=== PATIENT | male | born 1980 | race Caucasian/White ===

== ENCOUNTER 2025-03-21 21:05 | Emergency (ER) | payer OTHER, SELFPAY ==
--- NOTE | 2025-03-21 21:18 | DI.RAD.S_ITS ---
PROCEDURE: XR SHOULDER LT MIN 2V INDICATIONS: pain in left shoulder, unable to move shoulder TECHNIQUE: 2 views of the shoulder were acquired. COMPARISON: None. FINDINGS: Bones: No fractures or dislocations. No suspicious bony lesions. Visualized ribs appear intact. Acromioclavicular joint space narrowing with osteophytosis. Soft tissues: No suspicious soft tissue calcifications. IMPRESSION: No dislocation. Moderate to severe chronic of accurate osteoarthritis. Dictated by: Roberth Olsen M.D. on 03/21/2025 at 21:34 Approved by: Roberth Olsen M.D. on 03/21/2025 at 21:35
[2025-03-21 21:19] VITALS: BP 150/100; PULSE 86; RESP 17; TEMP 37; O2SAT 98; BMI 25.4
[2025-03-21 21:33] VITALS: BP 147/94; PULSE 92; RESP 19; O2SAT 97
--- NOTE | 2025-03-21 21:39 | ED.EXTPRO ---
HPI - Extremity Problem General Chief complaint: Extremity Problem,Nontraumatic Stated complaint: thinks he tore lt rotator cuff Time Seen by Provider: 03/21/25 21:39 Source: patient Mode of arrival: Ambulatory History of Present Illness HPI Narrative: 44-year-old male without any significant past medical history presenting for left shoulder pain, according to the patient last Thursday started having some pain in his left shoulder, states started to increase in pain over the next few days but denies any actual trauma or injury to it. He states that he is worried that he might have torn his rotator cuff. He denies any other injuries, no numbness weakness tingling to the remainder of the left upper extremity Related Data Previous Rx's Medication Instructions Recorded naproxen 500 mg tablet (Naprosyn) 500 mg PO BID PRN pain 1 week #14 03/21/25 tabs Allergies Allergy/AdvReac Type Severity Reaction Status Date / Time bee venom protein (honey bee) Allergy Verified 03/21/25 21:18 Review of Systems Review of Systems Narrative: General: Denies fever, chills, weight loss HEENT: Denies headache, eye drainage, eye irritation, head trauma, sore throat, voice change Cardiovascular: Denies any chest pain, palpitations, tachycardia Respiratory: Denies any shortness of breath, cough, wheeze, stridor GI/: Denies any abdominal pain, nausea, vomiting, diarrhea, bright red blood per rectum, melanotic stools, urinary frequency, urinary retention, dysuria, hematuria MSK: Positive left shoulder pain Skin: Denies any rashes, lesions, discoloration Neuro: Denies any headache, lightheadedness, dizziness, fainting, weakness Psych: Denies SI/HI Patient History Social History Smoking Status: Current every day smoker Smoking Status: Current every day smoker Exam Initial Vital Signs Initial Vital Signs: Vital Signs Temperature 98.6 F 03/21/25 21:19 Pulse Rate 86 03/21/25 21:19 Respiratory Rate 17 03/21/25 21:19 Blood Pressure 150/100 H 03/21/25 21:19 Pulse Oximetry 98 03/21/25 21:19 Oxygen Delivery Method Room Air 03/21/25 21:19 Course Orders Ordered: ED Orders 03/21/25 21:18 XR shoulder LT 2+ views Stat Vital Signs Vital signs: Vital Signs - 8 hr 03/21/25 21:19 Temperature 98.6 F Pulse Rate 86 Respiratory Rate 17 Blood Pressure 150/100 H Pulse Oximetry 98 Oxygen Delivery Method Room Air MDM - Extremity (Nontraumatic) Differential Diagnosis Differential diagnosis: Likely other (Arthritis, tendonitis, rotator cuff tear) Imaging Data Extremity x-ray #1: Radiologist's Impression: [address] [address] XRay Report Signed Patient: Roge Valdez MR#: [id number] : 1980 Acct:[id number] Age/Sex: 44 / M Date of Service: 03/21/25 Loc: ED Accession Number: [id number] Procedure: XR shoulder LT 2+ views Ordering Provider: Juno Alvarado D.O. PROCEDURE: XR SHOULDER LT MIN 2V INDICATIONS: pain in left shoulder, unable to move shoulder TECHNIQUE: 2 views of the shoulder were acquired. COMPARISON: None. FINDINGS: Bones: No fractures or dislocations. No suspicious bony lesions. Visualized ribs appear intact. Acromioclavicular joint space narrowing with osteophytosis. Soft tissues: No suspicious soft tissue calcifications. IMPRESSION: No dislocation. Moderate to severe chronic of accurate osteoarthritis. MDM Narrative Medical decision making narrative: 44-year-old male without any significant past medical history presenting for left shoulder pain nontraumatic in injury, states it started last Thursday progressively gotten worse but neurovascularly intact to the upper extremity. X-ray showing osteoarthritis, patient will be placed in sling for comfort and told to follow up with Orthopedic surgery in outpatient setting, patient will be discharged home with symptomatic treatment. Strict return precautions given verbalized understanding of this and agrees to being discharged home with outpatient follow up Discharge Plan Departure Patient Disposition: Home Clinical Impression: Osteoarthritis of left shoulder Instructions: DI for Osteoarthritis, How to Use a Sling Activity Restrictions/Additional Instructions: Please follow up with primary care and orthopedic surgery Please read the discharge instructions sheet carefully and bring all papers to all doctor follow-up visits, as it may contain information that your doctor may want to see. Disease processes change and evolve, if your symptoms worsen or if you develop any new symptoms that are concerning to you please return for evaluation. Your evaluation today does not show any evidence of any life-threatening/serious illnesses requiring admission to the hospital or surgery. Please follow-up with your doctor for re-evaluation in approximately 1 day. Seek immediate medical attention for any worrisome symptoms. *If you do not have a primary care provider please contact the [facility] Resource line at [phone]. They will ask some questions about your medical history and help get you set up with a doctor in the community. Prescriptions: New naproxen [Naprosyn] 500 mg tablet 500 mg PO BID PRN (Reason: pain) 7 Days Qty: 14 0RF Stand Alone Forms: Patient Portal/API/Survey
[2025-03-21] MEDS: OXYCODONE/APAP 5/325 PREPACK 1 BOTTLE MISC (21:51)
== END 2025-03-21 21:55 | disposition home or self-care (01) ==
PROVIDERS: Emergency Provider Student in an Organized Health Care Education/Training Program
DX: M19.012 Primary osteoarthritis, left shoulder (principal)
CPT/HCPCS: 73030; 99283